=== PATIENT | male | born 1995 | race Hispanic/Latino ===

== ENCOUNTER 2017-05-02 09:37 | Emergency (ER) | payer OTHER ==
[~2017-05-02] VITALS: Ht 170.2 cm; Wt 75.0 kg
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
[2017-05-02 11:42] VITALS: BP 126/70
[2017-05-02] MEDS ORDERED: TRAM37.53 PO (12:10)
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
== END 2017-05-02 11:43 | disposition home or self-care (01) ==
LOC: M ED 09:37
DX: S01.81XA Laceration without foreign body of other part of head, initial encounter (principal); S63.501A Unspecified sprain of right wrist, initial encounter; V49.50XA Passenger injured in collision with unspecified motor vehicles in traffic accident, initial encounter; Y92.89 Other specified places as the place of occurrence of the external cause